=== PATIENT | female | born 1940 | race Caucasian/White ===

== ENCOUNTER → 2016-10-30 | Outpatient (CLI) | payer MEDICARE ==
[~2016-10-30] MED LIST: ANORO ELLIPTA1 EACH INH; LEXAPRO20 MG PO; LOPRESSOR25 MG PO; MYSOLINE50 MG PO; OXYGEN M-15 INH
== END | disposition disaster alternative care site (69) ==
LOC: GRAD 08:40
DX: M54.5 Low back pain (principal); S32.059A Unspecified fracture of fifth lumbar vertebra, initial encounter for closed fracture; M43.8X6 Other specified deforming dorsopathies, lumbar region; M41.9 Scoliosis, unspecified; X58.XXXA Exposure to other specified factors, initial encounter

== ENCOUNTER → 2016-11-05 | Outpatient (CLI) | payer MEDICARE ==
[2016-11-05 13:49] LABS: BASOPHIL % 0.6 %; EOSINOPHIL # 0.4 K/uL (0.0-0.5); EOSINOPHIL % 6.8 %; HEMATOCRIT 46.6 % (33.0-46.0); HEMOGLOBIN 15.4 g/dL (10.0-15.0); IMMATURE GRANULOCYTE % 0.2 %; LYMPHOCYTE # 2.3 K/uL (0.8-4.0); LYMPHOCYTE % 43.3 %; MCH 33.8 pg (27.0-34.0); MCV 102.2 fl (83.0-98.0); MONOCYTE # 0.5 K/uL (0.0-1.0); MONOCYTE % 9.4 %; MPV 10.5 fl (9.4-12.4); NEUTROPHIL # (ANC) 2.1 K/uL (1.8-7.8); NEUTROPHIL % 39.7 %; NRBC % 0 /100WBC (0-0.00); PLATELET COUNT 244 K/uL (150-450); RBC 4.56 M/uL (3.50-5.50); RDW-CV 13.3 % (11.9-14.6); WBC 5.3 K/uL (4.0-11.0)
[2016-11-05 14:01] LABS: INR - (THERAPEUTIC) 0.98 (0.92-1.07); PROTIME 10.3 SECONDS (9.8-11.4)
[2016-11-05 14:07] LABS: ALBUMIN 3.9 gm/dL (3.5-5.0); CALCIUM 9.4 mg/dL (8.5-10.5); CREATININE 0.6 mg/dL (0.5-1.1); PHOSPHORUS 3.2 mg/dL (2.5-4.9)
== END | disposition disaster alternative care site (69) ==
LOC: GOPD 11-01
PROVIDERS: Neurological Surgery
DX: S32.059A Unspecified fracture of fifth lumbar vertebra, initial encounter for closed fracture (principal); F17.200 Nicotine dependence, unspecified, uncomplicated
CPT/HCPCS: C1713; J0690; J2001; J7030